=== PATIENT | female | born 1995 | race Caucasian/White ===

== ENCOUNTER 2022-01-20 22:47 | Emergency (ER) | payer SELFPAY ==
[~2022-01-20] VITALS: Ht 167.6 cm; Wt 73.0 kg
[2022-01-20 23:45] VITALS: BP 102/55
== END 2022-01-20 23:50 | disposition home or self-care (01) ==
LOC: ER 22:47
DX: R11.2 Nausea with vomiting, unspecified (principal); F32.9 Major depressive disorder, single episode, unspecified
CPT/HCPCS: 99283